=== PATIENT | female | born 1980 | race Two or more races ===

== ENCOUNTER 2024-04-22 19:07 | Emergency (ER) | payer OTHER ==
[~2024-04-22] VITALS: Ht 175.3 cm; Wt 70.3 kg
[~2024-04-22 19:07] MED LIST: CATAFLAM50 MG PO; ORPH100T PO
[2024-04-23 00:42] LABS: HEMATOCRIT 37.7 % (36.0-45.00); HEMOGLOBIN 12.7 g/dL (12.0-15.00); MEAN CELL VOLUME 85.4 fL (80.00-100.00); MEAN CORPUSCULAR HEMOGLOBIN 28.8 pg (27.00-32.0); MEAN CORPUSCULAR HGB CONC 33.7 g/dl (32.0-36.0); PLATELET COUNT 269 K/uL (150-450); RED BLOOD COUNT 4.42 M/uL (4.00-6.00); RED CELL DISTRIBUTION WIDTH 13.2 % (11.5-14.5)
[2024-04-23] MEDS ORDERED: DOLOGESIC-DF 51 EACH PO (02:14)
== END 2024-04-23 02:23 ==
LOC: ER 19:10
PROVIDERS: Preventive Medicine Public Health & General Preventive Medicine
DX: R50.9 Fever, unspecified (principal); Z20.822 Contact with and (suspected) exposure to COVID-19; Z91.018 Allergy to other foods